=== PATIENT | female | born 1970 | race African-American/Black ===

== ENCOUNTER 2016-08-01 01:50 | Emergency (ER) | payer MEDICAID ==
[~2016-08-01] VITALS: Ht 170.2 cm; Wt 79.5 kg
[2016-08-01] MEDS ORDERED: FLUO-191 PO (02:05)
[2016-08-01] MEDS ORDERED: ARIP10TA14 PO (02:05)
[2016-08-01] MEDS ORDERED: NIFE90TA45 PO (02:05)
[2016-08-01] MEDS ORDERED: QUET200XR PO (02:05)
[2016-08-01] MEDS ORDERED: LEVE500T53 PO (02:05)
[2016-08-01] MEDS ORDERED: CLON1 PO (02:05)
[2016-08-01] MEDS ORDERED: SODIUM CHLORIDE 0.9% 1,000 ML IV ONE ×2 (02:15→04:45)
[2016-08-01] MEDS ORDERED: ONDANSETRON HCL 4 MG/2 ML VIAL IVP ONE (02:15)
[2016-08-01 02:58] LABS: ANION GAP 9 mmol/L (8-16); CALCIUM, TOTAL 9.6 mg/dL (8.8-10.5); CARBON DIOXIDE 29 mmol/L (22-29); CHLORIDE 102 mmol/L (98-107); CREATININE 0.83 mg/dL (0.60-1.30); GLOMERULAR FILTR. RATE CALC > 60 mL/min (>60); HEMATOCRIT 33.4 % (36-46); HEMOGLOBIN 10.1 g/dL (12.0-16.0); MEAN CORPUSCULAR HEMOGLOBIN 18.1 pg (26.0-34.0); MEAN CORPUSCULAR HGB CONC 30.1 G/dL (31.0-37.0); MEAN CORPUSCULAR VOLUME 60 fL (80-100); PLATELET COUNT (AUTO) 379 K/uL (150-450); POTASSIUM 3.5 mmol/L (3.5-5.1); RED BLOOD CELL COUNT(AUTO) 5.57 MIL/uL (4.00-5.20); RED CELL DISTRIBUTION WIDTH 23.8 % (11.5-14.5); SODIUM SERUM 140 mmol/L (136-145); UREA NITROGEN, BLOOD 19 mg/dL (7-18); WHITE BLOOD COUNT (AUTO) 11.8 K/uL (4.5-11.0)
[2016-08-01 03:04] LABS: ALANINE AMINOTRANSFERASE 27 U/L (12-78); ALBUMIN 3.9 g/dL (3.4-5.0); ASPARTATE AMINOTRANSFERASE 13 U/L (15-37); BILIRUBIN,TOTAL 0.2 mg/dL (0.1-1.0); TOTAL PROTEIN, SERUM 8.8 g/dL (6.4-8.2)
[2016-08-01 03:28] LABS: EOSINOPHILS % (MANUAL) 1 % (1-6); LYMPHOCYTES % (MANUAL) 8 % (22-44); TOTAL CELLS COUNTED 100
[2016-08-01 03:29] LABS: RBC MORPHOLOGY COMMENT ABNORMAL RBC MORPH
[2016-08-01 03:53] LABS: APPEARANCE,URINE CLOUDY (CLEAR); GLUCOSE, URINE (UA) 100 mg/dL (NEGATIVE); KETONES,URINE NEGATIVE (NEGATIVE); LEUKOCYTE ESTERASE ,URINE NEGATIVE (NEGATIVE); OCCULT BLOOD,URINE LARGE (NEGATIVE); PH,URINE 8.5 (5.0-8.0); PROTEIN,URINE TRACE (NEGATIVE)
[2016-08-01 04:20] LABS: SQUAMOUS EPITHELIAL CELL,UR Rare /LPF (None Seen)
[2016-08-01] MEDS ORDERED: PROMETHAZINE HCL 12.5 MG in SODIUM CHLORIDE 0.9% 50 ML IV ONE (04:45)
[2016-08-01 05:56] VITALS: BP 141/84
== END 2016-08-01 06:05 | disposition home or self-care (01) ==
LOC: EMS 01:52
DX: R10.9 Unspecified abdominal pain (principal); R11.10 Vomiting, unspecified; J45.909 Unspecified asthma, uncomplicated; I10 Essential (primary) hypertension; D25.9 Leiomyoma of uterus, unspecified; F17.210 Nicotine dependence, cigarettes, uncomplicated
CPT/HCPCS: 36415; 74176; 76856; 80053; 81001; 83690; 84703; 85025; 96360; 96361; 96374; 96375; 99285; J2405; J2550; J7030; J7050